=== PATIENT | male | born 1970 | race Caucasian/White ===

== ENCOUNTER 2016-09-17 16:05 | Inpatient (IN) | payer MEDICAID ==
[~2016-09-17] VITALS: Ht 175.3 cm; Wt 93.9 kg
--- NOTE | 2016-09-17 16:08 | NUR ---
PT BIB RA C/O MID STERNAL CHEST PAIN 03/03, RADIATING TO BACK, X 2 HRS ASSET ANALYST. PLACED PT ON MONITOR. VSS. AWAITNG MD ORDER
--- NOTE | 2016-09-17 16:08 | NUR ---
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 BLOOD COLLECTED SENT TO LAB.
[2016-09-17 16:23] LABS: BASOPHILS # (AUTO) 0.1 /CMM (0.0-0.2); BASOPHILS % (AUTO) 0.9 % (0.0-2.0); EOSINOPHILS # (AUTO) 0.2 /CMM (0.0-0.7); EOSINOPHILS % (AUTO) 2.2 % (0.0-6.0); HEMATOCRIT 48 % (39-51); HEMOGLOBIN 16.1 g/dL (13.5-17.5); LYMPHOCYTES # (AUTO) 3.2 /CMM (0.8-4.8); LYMPHOCYTES % (AUTO) 32.1 % (20.0-44.0); MEAN CORPUSCULAR HEMOGLOBIN 30 PG (26.0-33.0); MEAN CORPUSCULAR HGB CONC 33 g/dl (31.0-36.0); MEAN CORPUSCULAR VOLUME 90 fL (80-96); MONOCYTES # (AUTO) 0.7 /CMM (0.1-1.30); MONOCYTES % (AUTO) 6.8 % (2.0-12.0); NEUTROPHILS # (AUTO) 5.6 /CMM (1.8-8.9); PLATELET COUNT (AUTO) 285 /CMM (150-450); RDW COEFFICIENT OF VARIATION 12.2 (11.5-15.0); RED BLOOD CELL COUNT(AUTO) 5.38 MIL/uL (4.5-6.0); WHITE BLOOD COUNT (AUTO) 9.8 K/uL (4.3-11.0)
[2016-09-17] MEDS ORDERED: MORPHINE SULFATE INJ 4 MG/ML DISP.SYRIN ONE (16:24)
[2016-09-17] MEDS ORDERED: MORPHINE SULFATE INJ 2 MG/ML DISP.SYRIN IV ONE (16:30)
[2016-09-17] MEDS ORDERED: UNK CHOLESTEROL MED (16:36)
[2016-09-17] MEDS ORDERED: ASPI81TA2 PO (16:36)
[2016-09-17] MEDS ORDERED: METF500T4 PO (16:36)
[2016-09-17] MEDS ORDERED: UNK BP MED (16:36)
[2016-09-17 16:38] LABS: INR 1.02 (0.87-1.13); PROTHROMBIN TIME 10.6 SECS (9.5-12.7)
[2016-09-17 16:40] LABS: ALANINE AMINOTRANSFERASE 60 U/L (12-78); ALBUMIN 4.3 g/dL (3.4-5.0); ALKALINE PHOSPHATASE 116 U/L (46-116); ASPARTATE AMINOTRANSFERASE 39 U/L (15-37); BILIRUBIN,DIRECT 0.1 mg/dL (0.0-0.2); BILIRUBIN,TOTAL 0.5 mg/dL (0.2-1.0); TOTAL PROTEIN, SERUM 8.1 g/dL (6.4-8.2)
[2016-09-17 16:43] LABS: TROPONIN I < 0.017 ng/mL (0.00-0.056)
--- NOTE | 2016-09-17 17:42 | NUR ---
326 B 2
--- NOTE | 2016-09-17 17:42 | NUR ---
WAITING FOR CREATININE & BUN LABS BEFORE CT SCAN.
[2016-09-17 17:46] LABS: CALCIUM, SERUM 9.8 mg/dL (8.5-10.1); CREATININE 0.9 mg/dL (0.6-1.3); POTASSIUM 4.1 mmol/L (3.5-5.1)
--- NOTE | 2016-09-17 17:56 | NUR ---
GAVE REPORT TO LISSETH LOPEZ PT 326-2 TELEMETRY .
[2016-09-17] MEDS ORDERED: IOHEXOL-350 100 ML VIAL IV ONE (18:03)
[2016-09-17] MEDS ORDERED: IV NS 0.9% 250 ML IV ONE (18:03)
--- NOTE | 2016-09-17 18:08 | NUR ---
PT TAKEN TO CT VIA [facility]
--- NOTE | 2016-09-17 18:55 | NUR ---
PAGED STEM ROLLER PANEL
--- NOTE | 2016-09-17 19:08 | NUR ---
RECEIVED REPORT FROM TOBIAS EVERETT FOR BERE.
--- NOTE | 2016-09-17 19:08 | NUR ---
Note tea in EDM - 09/17/16 at 1910 by GAETANO RECEIVED REPORT FROM TOBIAS EVERETT FOR BERE. XRAY AT BEDSIDE. PT NOTED COMFORTABLE IN BED.
[2016-09-17] MEDS ORDERED: ONDANSETRON HCL/PF 4 MG/2 ML VIAL IVP PRN (19:30)
[2016-09-17] MEDS ORDERED: LORAZEPAM 1 MG TABLET PO PRN (19:30)
[2016-09-17] MEDS ORDERED: DOCUSATE SODIUM 100 MG CAPSULE PO PRN (19:30)
[2016-09-17] MEDS ORDERED: ZOLPIDEM TARTRATE 5 MG TABLET PO PRN (19:30)
--- NOTE | 2016-09-17 19:36 | NUR ---
PT TRANSFERED PER ACLS PROTOCOL.
--- NOTE | 2016-09-17 19:40 | NUR ---
TELE/RN NOTES RECEIVED PT. FROM ER VIA [facility]. PT. IS AWAKE, ALERT AND ORIENTED X3. BREATHING EVEN AND UNLABORED ON 2LPM O2 VIA NC. NO SOB, RESPIRATORY DISTRESS NOTED AT THIS TIME. NO COMPLAINTS OF CHEST PAIN AT THIS TIME. PT. COMPLAINING OF PAIN 2/10 IN HIS BACK, STATING ITS MUCH BETTER THAN BEFORE. ORIENTED PT. TO ROOM. PLACED EXTERNAL PLASTIC STRAIGHTENING ROLL OPERATOR ON PT. CURRENT RHYTHM = SINUS RHYTHM HR 90. PT. WITH LEFT FOREARM 18 GAUGE IV SALINE LOCK PRESENT, PATENT AND INTACT. PT. WITH FAMILY PRESENT AT BEDSIDE. BED IN LOWEST POSITION, CALL LIGHT WITHIN REACH, WILL CONTINUE TO MONITOR.
[2016-09-17 20:00] VITALS: BP 147/97
[2016-09-17] MEDS ORDERED: NITROGLYCERIN 30 GM TUBE TP PRN (20:00)
[2016-09-17] MEDS ORDERED: *INSULIN REGULAR(HUMULIN R)HUM 100 UNIT/ML VIAL SQ PRN (20:30)
[2016-09-17] MEDS ORDERED: DEXTROSE 50%-WATER 50 ML DISP.SYRIN IV PRN (20:30)
[2016-09-17] MEDS ORDERED: INSULIN REGULAR, HUMAN 100 UNIT/ML 3 ML VIAL SQ PRN (20:30)
[2016-09-17] MEDS: BLOOD SUGAR DIAGNOSTIC 1 EACH STRIP VI SCH (22:26)
[2016-09-18] VITALS: BP 134/74
[2016-09-18] MEDS: METOPROLOL TARTRATE 25 MG TABLET PO SCH ×3 (00:30→21:00)
[2016-09-18] MEDS ORDERED: ENOXAPARIN SODIUM 40 MG/0.4 ML DISP.SYRIN SQ SCH ×2 (00:30→21:00)
[2016-09-18] MEDS ORDERED: ATORVASTATIN 40 MG TABLET ONE (00:52)
[2016-09-18] MEDS ORDERED: ENOXAPARIN SODIUM 40 MG/0.4 ML DISP.SYRIN SQ ONE (00:52)
[2016-09-18] MEDS ORDERED: METOPROLOL TARTRATE 25 MG TABLET ONE (00:52)
[2016-09-18] MEDS: ATORVASTATIN 40 MG TABLET PO SCH ×2 (01:08→21:43)
[2016-09-18 04:00] VITALS: BP 104/63
[2016-09-18] MEDS: BLOOD SUGAR DIAGNOSTIC 1 EACH STRIP VI SCH ×4 (06:43→21:43)
--- NOTE | 2016-09-18 06:55 | NUR ---
TELE/RN NOTES PT. LYING IN BED RESTING. BREATHING EVEN AND UNLABORED ON 2LPM O2 VIA NC. NO SOB, RESPIRATORY DISTRESS NOTED AT THIS TIME. NO COMPLAINTS OF CHEST PAIN AT THIS TIME AND THROUGHOUT SHIFT. PT. WITH EXTERNAL MAINTENANCE DEPARTMENT MANAGER PRESENT AND INTACT, CURRENT RHYTHM = SINUS RHYTHM HR 82. NO S/S OF HYPO/HYPERGLYCEMIA NOTED THROUGHOUT SHIFT. PT. WITH LEFT FOREARM 18 GAUGE IV SALINE LOCK PRESENT, PATENT AND INTACT. ALL PT. NEEDS MET. BED IN LOWEST POSITION, CALL LIGHT WITHIN REACH, WILL ENDORSE TO DAYSHIFT NURSE FOR CONTINUITY OF CARE.
[2016-09-18 07:49] LABS: CHOLESTEROL 113 mg/dL (<200); HDL CHOLESTEROL 29 mg/dL (40-60); LDL 70 mg/dL (0-99); TRIGLYCERIDES 120 mg/dL (30-150)
[2016-09-18 08:00] VITALS: BP_SYST 107; BP_SYST 114; BP_DIAS 55; BP_DIAS 61
--- NOTE | 2016-09-18 08:05 | NUR ---
BAKERY MANAGER OPENING NOTES RECIEVED PT IN STABLE CONDITION FROM VICE PRESIDENT INDUSTRIAL RELATIONS NURSE. NO SOB OR PAIN EXPRESSED AT THIS TIME. PT ON TELE MONITOR READING SINUS RHYTHM, HR 60. IV ON LEFT FOREARM 18 G INTACT AND PATENT. BED IN LOW LOCKED POSITION, SIDE RAILS UP X2, CALL LIGHT WITHIN REACH. WILL CONTINUE TO MONITOR.
[2016-09-18] MEDS: ASPIRIN 81 MG TAB.CHEW PO SCH (09:14)
[2016-09-18] MEDS: FAMOTIDINE (20 MG) 20 MG TABLET PO SCH (09:14)
[2016-09-18 12:00] VITALS: BP 125/86
[2016-09-18 13:23] LABS: ALBUMIN 4.1 g/dL (3.4-5.0); BILIRUBIN,TOTAL 0.9 mg/dL (0.2-1.0); CALCIUM, SERUM 9.4 mg/dL (8.5-10.1); PHOSPHORUS 4.7 mg/dL (2.5-4.9); POTASSIUM 4.2 mmol/L (3.5-5.1); TOTAL PROTEIN, SERUM 7.7 g/dL (6.4-8.2)
[2016-09-18 13:25] LABS: THYROID STIMULATING HORMONE 1.63 uIU/mL (0.358-3.74)
[2016-09-18 16:00] VITALS: BP 112/73
--- NOTE | 2016-09-18 19:30 | NUR ---
PLATE WORKER INITIAL NOTE RECEIVED PT AWAKE AND ALERT, ORIENTED X4, NO COMPLAINT OF PAIN OR RESPIRATORY DISTRESS NOTED DURING PHYSICAL ASSESSMENT, PT IS CLEAN/DRY AND COMFORTABLE, PT WILL BE GOING FOR A LEXISCAN STRESS TEST TOMORROW IN AM, WILL BE KEPT NPO AFTER MIDNIGHT, CONSENT HAVE BEEN SIGNED AND PLACED IN CHART, SAFETY MEASURES WILL BE MAINTAINED, NEEDS WILL BE ANTICIPATED AND ATTENDED TO DURING HOURLY ROUNDS AND NEEDED.
--- NOTE | 2016-09-18 19:46 | NUR ---
CREAM TESTER CLOSING NOTES ENDORSED PT IN STABLE CONDITION TO SUPPLY CHAIN ASSISTANT NURSE. NO SOB OR PAIN EXPRESSED AT THIS TIME. PT ON TELE MONITOR READING SINUS RHYTHM, HR 60. IV ON LEFT FOREARM 18 G INTACT AND PATENT. NO REDNESS OR INFILTRATION NOTED. BED IN LOW LOCKED POSITION, SIDE RAILS UP X2, CALL LIGHT WITHIN REACH.
[2016-09-18 20:00] VITALS: BP 117/70
[2016-09-19] VITALS: BP 111/67
[2016-09-19 04:00] VITALS: BP 114/62
--- NOTE | 2016-09-19 06:40 | NUR ---
B2B APPOINTMENT SETTER CLOSING NOTE PT REMAINED STABLE DURING HEDGE FUND MANAGER, HE IS SCHEDULE TO HAVE LEXISCAN STRESS TEST THIS MORNING, HE WAS NPO AFTER MIDNIGHT, NO SIGNIFICANT CHANGES IN CONDITION NOTED DURING NIGHT, PT SLEPT INTERMITTENTLY, WITH NO COMPLAINT OF PAIN OR RESPIRATORY, PT CLEAN/DRY AND COMFORTABLE, SAFETY MEASURES MAINTAINED AT ALL TIMES, WILL ENDORSE TO INCOMING NURSE FOR BERE.
[2016-09-19] MEDS: BLOOD SUGAR DIAGNOSTIC 1 EACH STRIP VI SCH ×3 (06:57→17:50)
[2016-09-19 07:02] VITALS: BP 110/66
[2016-09-19 07:15] LABS: BASOPHILS # (AUTO) 0.1 /CMM (0.0-0.2); BASOPHILS % (AUTO) 0.8 % (0.0-2.0); EOSINOPHILS # (AUTO) 0.2 /CMM (0.0-0.7); EOSINOPHILS % (AUTO) 2.1 % (0.0-6.0); HEMATOCRIT 52 % (39-51); HEMOGLOBIN 17.2 g/dL (13.5-17.5); LYMPHOCYTES # (AUTO) 3.1 /CMM (0.8-4.8); LYMPHOCYTES % (AUTO) 32.7 % (20.0-44.0); MEAN CORPUSCULAR HEMOGLOBIN 30 PG (26.0-33.0); MEAN CORPUSCULAR HGB CONC 33 g/dl (31.0-36.0); MEAN CORPUSCULAR VOLUME 91 fL (80-96); MONOCYTES # (AUTO) 0.8 /CMM (0.1-1.30); MONOCYTES % (AUTO) 8.2 % (2.0-12.0); NEUTROPHILS # (AUTO) 5.3 /CMM (1.8-8.9); NEUTROPHILS % (AUTO) 56.2 % (43.0-81.0); PLATELET COUNT (AUTO) 288 /CMM (150-450); RDW COEFFICIENT OF VARIATION 13.3 (11.5-15.0); RED BLOOD CELL COUNT(AUTO) 5.69 MIL/uL (4.5-6.0); WHITE BLOOD COUNT (AUTO) 9.4 K/uL (4.3-11.0)
--- NOTE | 2016-09-19 07:18 | NUR ---
TELE/RN AM NOTES RECEIVED PATIENT IN BED, AWAKE, ALERT, EQUATORIAL GUINEAN SPEAKING, DENIES CHEST PAIN, NO SOB, COMFORTABLE IN BED, NO DISCOMFORT NOTED, REMAINS NPO FOR CARDIAC STRESS TEST. NEEDS MET, WITH CALL LIGHT WITHIN EASY REACH. WILL CONTINUE TO MONITOR ACCORDINGLY.
[2016-09-19 07:57] LABS: CALCIUM, SERUM 9.4 mg/dL (8.5-10.1); CREATININE 0.9 mg/dL (0.6-1.3); POTASSIUM 4.2 mmol/L (3.5-5.1)
[2016-09-19 08:00] VITALS: BP 110/66
[2016-09-19] MEDS ORDERED: REGADENOSON 0.4 MG/5 ML DISP.SYRIN IVP ONE (08:00)
[2016-09-19] MEDS: METOPROLOL TARTRATE 25 MG TABLET PO SCH (09:00)
[2016-09-19] MEDS: FAMOTIDINE (20 MG) 20 MG TABLET PO SCH (09:34)
[2016-09-19] MEDS: ASPIRIN 81 MG TAB.CHEW PO SCH (09:34)
--- NOTE | 2016-09-19 10:00 | NUR ---
TELE/RN NOTES PATIENT IS BACK FROM CARDIAC TEST, IN STABLE CONDITION, NO CHEST PAIN, NO SOB, LATE BREAKFAST PROVIDED, TOLERATED WELL
[2016-09-19] MEDS ORDERED: IBUP-1955 PO (14:48)
[2016-09-19 16:00] VITALS: BP 115/73
--- NOTE | 2016-09-19 18:05 | NUR ---
DISCHARGED PATIENT HOME, IN STABLE CONDITION, ON W/C, WITH DIRECTOR OF LOSS PREVENTION ASSISTANCE, FAMILY AWAITING IN THE LOBBY. AWAKE, ALERT, WITH NO SOB, BLOOD GLUCOSE 122 , NO COVERAGE GIVEN. DINNER TOLERATED WELL. LEFT WITH ALL HIS BELONGINGS, D/C PAPERS, ENCOURAGED TO F/U WITH PRIMARY PHYSICIAN WITHIN A WEEK.
== END 2016-09-19 18:00 | disposition home or self-care (01) | DRG 203 ==
LOC: ER 16:06 → TELE 18:42 → MED 09-19 11:21
PROVIDERS: ADMIT Internal Medicine; ATTEND Internal Medicine
DX: M94.0 Chondrocostal junction syndrome [Tietze] (principal); K76.0 Fatty (change of) liver, not elsewhere classified; I11.9 Hypertensive heart disease without heart failure; R07.9 Chest pain, unspecified; E11.9 Type 2 diabetes mellitus without complications; E78.5 Hyperlipidemia, unspecified; J98.11 Atelectasis
CPT/HCPCS: 36415; 71010-TC; 76700-TC; 80048-TC; 80053-TC; 80061-TC; 80076-TC; 82962-TC; 83690-TC; 83735-TC; 84100-TC; 84439-TC; 84443-TC; 84484-TC; 85025-TC; 85730-TC; 87081-TC; 93307-TC; A4606; A9502; J1650; J1815; J2270; J2785; J7050; Q9967; Z7610

== ENCOUNTER 2019-01-14 08:01 | Emergency (ER) | payer MEDICAID ==
[~2019-01-14] VITALS: Ht 172.7 cm; Wt 93.0 kg
[~2019-01-14 08:01] MED LIST: ASPI-1169 PO; IBUP-1955 PO; METF-440 PO; UNK BP MED; UNK CHOLESTEROL MED
--- NOTE | 2019-01-14 08:21 | NUR ---
patient c/o left shoulder pain x 2 days, -trauma, denies injury. on room air, breathing evenly and unlabored. kept comfortable, will continue to monitor accordingly. Dr. cervantes at bedside for eval.
[2019-01-14] MEDS ORDERED: KETOROLAC TROMETHAMINE INJ 30 MG/ML VIAL ONE (08:26)
[2019-01-14] MEDS ORDERED: KETOROLAC TROMETHAMINE INJ 60 MG/2 ML VIAL IM ONE (08:30)
--- NOTE | 2019-01-14 08:54 | NUR ---
Patient discharged to home in stable condition. Written and verbal after care instructions given. Patient verbalizes understanding of instruction.
[2019-01-14 08:55] VITALS: BP 148/95
== END 2019-01-14 08:55 | disposition home or self-care (01) ==
LOC: ER 08:01
DX: M54.12 Radiculopathy, cervical region (principal); I10 Essential (primary) hypertension; E11.9 Type 2 diabetes mellitus without complications; Z79.84 Long term (current) use of oral hypoglycemic drugs; Z79.82 Long term (current) use of aspirin
CPT/HCPCS: 93005; 96372; 99283; J1885

== ENCOUNTER 2019-06-29 11:09 | Emergency (ER) | payer MEDICAID ==
[~2019-06-29] VITALS: Ht 175.3 cm; Wt 95.3 kg
--- NOTE | 2019-06-29 11:15 | NUR ---
c/o r knee pain 03/03 ps x 2 weeks, denies injury. Patient a/ox4, breathing even and unlabored, no sob noted, needs attended.
--- NOTE | 2019-06-29 11:18 | NUR ---
SEEN BY AISHWARYA CHOI NP.
[2019-06-29] MEDS ORDERED: IBUPROFEN 400 MG TABLET ONE (11:20)
[2019-06-29] MEDS: IBUPROFEN 400 MG TABLET PO ONE (11:22)
--- NOTE | 2019-06-29 12:32 | NUR ---
Patient discharged to home in stable condition. Written and verbal after care instructions given. Patient verbalizes understanding of instruction.
--- NOTE | 2019-06-29 12:44 | NUR ---
RIGHT KNEE IMMOBILIZER APPLIED.
[2019-06-29 12:45] VITALS: BP 135/18
== END 2019-06-29 12:45 | disposition home or self-care (01) ==
LOC: ER 11:11
DX: M25.561 Pain in right knee (principal); E11.9 Type 2 diabetes mellitus without complications; I11.9 Hypertensive heart disease without heart failure; Z79.82 Long term (current) use of aspirin; Z79.899 Other long term (current) drug therapy
CPT/HCPCS: 73564-TC

== ENCOUNTER 2019-12-15 10:26 | Emergency (ER) | payer MEDICAID ==
[~2019-12-15] VITALS: Ht 177.8 cm; Wt 74.8 kg
[2019-12-15 10:59] VITALS: BP 131/78
--- NOTE | 2019-12-15 12:19 | NUR ---
SEEN AND EXMAINED BY .
--- NOTE | 2019-12-15 12:25 | NUR ---
ANIMAL CONTROL OFFICER AT BEDSIDE FOR XRAY.
[2019-12-15] MEDS ORDERED: KETOROLAC TROMETHAMINE INJ 30 MG/ML VIAL IM ONE (12:30)
[2019-12-15] MEDS ORDERED: KETOROLAC TROMETHAMINE 15 MG/ML VIAL ONE (12:51)
--- NOTE | 2019-12-15 13:41 | NUR ---
Patient discharged to home in stable condition. Written and verbal after care instructions given. Patient verbalizes understanding of instruction.
== END 2019-12-15 13:42 | disposition home or self-care (01) ==
LOC: ER 10:26
DX: R07.81 Pleurodynia (principal); G89.29 Other chronic pain; M54.9 Dorsalgia, unspecified; I10 Essential (primary) hypertension; E11.9 Type 2 diabetes mellitus without complications; Z79.82 Long term (current) use of aspirin; Z79.84 Long term (current) use of oral hypoglycemic drugs
CPT/HCPCS: 71045; 96372; 99283; J1885

== ENCOUNTER 2021-02-01 15:42 | Emergency (ER) | payer MEDICAID ==
[~2021-02-01] VITALS: Ht 170.2 cm; Wt 79.4 kg
--- NOTE | 2021-02-01 16:15 | NUR ---
BIBS BILAT EAR PAIN WHICH MAKES HIM DIZZY X 1 MONTH. RATES PAIN 6/10. DENIES CHANGE INNVISION. WILL CONTINUE TO MONITOR THE PATIENT.
[2021-02-01] MEDS ORDERED: NEOM10DR11 OT (16:19)
[2021-02-01] MEDS ORDERED: IBUP-1955 PO (16:19)
[2021-02-01 16:39] VITALS: BP 149/92
--- NOTE | 2021-02-01 16:39 | NUR ---
Patient discharged to home in stable condition. Written and verbal after care instructions given. Patient verbalizes understanding of instruction.
== END 2021-02-01 16:39 | disposition home or self-care (01) ==
LOC: ER 15:55
DX: H60.93 Unspecified otitis externa, bilateral (principal); I10 Essential (primary) hypertension; E11.9 Type 2 diabetes mellitus without complications; Z79.899 Other long term (current) drug therapy; Z79.84 Long term (current) use of oral hypoglycemic drugs; Z79.82 Long term (current) use of aspirin

== ENCOUNTER 2021-08-21 06:58 | Inpatient (IN) | payer MEDICAID ==
[2021-08-20 20:00] VITALS: BP 130/76
[~2021-08-21] VITALS: Ht 170.2 cm; Wt 84.4 kg
[~2021-08-21 06:58] MED LIST changes: +NEOM10DR11 OT
--- NOTE | 2021-08-21 07:13 | NUR ---
PATIENT BIBSELF C/O CP STARTED 5AM RAD TO LEFT ARM AND LEG FEELING PARESTHESIA. PATIENT IS A/O X 4 RR EVEN AND UNLABORED, NO SOB NOTED. PATIENT CONNECTED TO CARDIAC AND POX MONITORS.
--- NOTE | 2021-08-21 07:14 | NUR ---
BLOOD COLLECTED SENT TO LAB
--- NOTE | 2021-08-21 07:20 | NUR ---
Gracie metcalf in [facility] - 08/21/21 at 0720 by ALVARO 20G IV LINE ESTABLISHED AT [facility]. PATENT AND INTACT. BLOOD DRAWN AND SENT TO LAB.
--- NOTE | 2021-08-21 07:35 | NUR ---
CLINICAL RESEARCH MANAGEMENT ASSOCIATE AT BEDSIDE
[2021-08-21 07:43] LABS: BASOPHILS # (AUTO) 0.1 K/uL (0.0-0.2); BASOPHILS % (AUTO) 0.9 % (0.0-2.0); EOSINOPHILS % (AUTO) 1.6 % (0.0-6.0); HEMATOCRIT 47 % (39-51); HEMOGLOBIN 15.6 g/dL (13.5-17.5); LYMPHOCYTES # (AUTO) 1.9 K/uL (0.8-4.8); LYMPHOCYTES % (AUTO) 31.3 % (20.0-44.0); MEAN CORPUSCULAR HGB CONC 33 g/dl (31.0-36.0); MEAN CORPUSCULAR VOLUME 91 fL (80-96); MONOCYTES # (AUTO) 0.6 K/uL (0.1-1.30); MONOCYTES % (AUTO) 10.2 % (2.0-12.0); NEUTROPHILS # (AUTO) 3.4 K/uL (1.8-8.9); PLATELET COUNT (AUTO) 249 K/uL (150-450); RED BLOOD CELL COUNT(AUTO) 5.12 MIL/uL (4.5-6.0); WHITE BLOOD COUNT (AUTO) 6.1 K/uL (4.3-11.0)
[2021-08-21 07:53] LABS: CALCIUM, SERUM 8.7 mg/dL (8.5-10.1); CARBON DIOXIDE 30 mmol/L (21-32); CHLORIDE 100 mmol/L (98-107); CREATININE 0.7 mg/dL (0.6-1.3); GLUCOSE 137 mg/dL (74-106); POTASSIUM 3.4 mmol/L (3.5-5.1); SODIUM SERUM 136 mmol/L (136-145); UREA NITROGEN, BLOOD 12 mg/dL (7-18)
[2021-08-21] MEDS ORDERED: METF-441 PO (08:13)
[2021-08-21] MEDS ORDERED: ATOR10TA PO (08:13)
[2021-08-21] MEDS ORDERED: LISI2.5T2 PO (08:13)
--- NOTE | 2021-08-21 08:23 | NUR ---
panel clinical education assistant paged
--- NOTE | 2021-08-21 09:06 | NUR ---
COVID SWAB DONE AND SENT TO LAB
--- NOTE | 2021-08-21 16:40 | NUR ---
SPOKE TO PATIENT DAUGHTER ROSI [phone]
[2021-08-21] MEDS ORDERED: Z GUARD REMEDY 4 OZ OINT TP PRN (17:00)
[2021-08-21] MEDS ORDERED: INSULIN REGULAR, HUMAN 100 UNIT/ML 3 ML VIAL SQ PRN (17:00)
[2021-08-21] MEDS ORDERED: ACETAMINOPHEN 325 MG TABLET PO PRN (17:00)
[2021-08-21] MEDS ORDERED: ENOXAPARIN SODIUM 40 MG/0.4 ML DISP.SYRIN SQ SCH (17:00)
[2021-08-21] MEDS ORDERED: ONDANSETRON HCL/PF 4 MG/2 ML VIAL IVP PRN (17:00)
[2021-08-21] MEDS ORDERED: DEXTROSE 50%-WATER 50 ML DISP.SYRIN IV PRN (17:00)
[2021-08-21] MEDS ORDERED: POTASSIUM CHLORIDE 20 MEQ TAB.PRT.SR PO ONE ×2 (17:00→17:17)
[2021-08-21] MEDS ORDERED: ENOXAPARIN SODIUM 40 MG/0.4 ML DISP.SYRIN SQ ONE (17:15)
[2021-08-21] MEDS ORDERED: ACETAMINOPHEN 325 MG TABLET ONE (17:15)
[2021-08-21] MEDS ORDERED: METFORMIN 850 MG TABLET ONE (17:16)
[2021-08-21] MEDS: BLOOD SUGAR DIAGNOSTIC 1 EACH STRIP IN SCH ×2 (17:23→21:35)
[2021-08-21] MEDS: METFORMIN 850 MG TABLET PO SCH (17:23)
--- NOTE | 2021-08-21 18:48 | NUR ---
BED 326-1.
--- NOTE | 2021-08-21 19:23 | NUR ---
REPORT GIVEN TO TREMAINE FOR BERE
--- NOTE | 2021-08-21 19:52 | NUR ---
PATIENT TRANSPORTED TO ROOM 326 ON SUPERVISOR PIG MACHINE PER ACLS PROTOCOL. V/S STABLE AT TIME OF TRANSFER.
--- NOTE | 2021-08-21 19:53 | NUR ---
PHYSICAL CHEMISTRY TEACHEROAK TANNER NOTE PT TRANSPORTED [facility] TO UNIT AT THIS TIME. PT FROM HOME ADMITTED TO TELE FROM ER FOR ADMITTING DX OF CHEST PAIN. PT ABLE TO OPEN EYES, RESPONSIVE TO LIGHT STIMULUS. NO SOB NOTED. BREATHING EVEN AND UNLABORED. PT IS ON EXTERNAL EYEGLASS FITTER READING SR @ 68 BPM. NO COMPLAINTS OF PAIN OR DISCOMFORT AT THIS TIME. SKIN IS INTACT. IV ACCESS RAC 20 GAUGE, INTACT AND PATENT. ORIENTED PT TO STAFF, UNIT, AND ROOM. ALL PT BELONGINGS ACCOUNTED FOR AND SIGNED PT BELONGINGS LIST. SAFETY PRECAUTIONS IN PLACE. BED IN LOWEST LOCKED POSITION, HOB ELEVATED, SIDE RAILS UP X2, AND CALL LIGHT AND TABLE WITHIN REACH. WILL CONTINUE WITH PLAN OF CARE.
[2021-08-21] MEDS ORDERED: ATORVASTATIN 40 MG TABLET PO SCH (22:00)
--- NOTE | 2021-08-21 23:38 | NUR ---
RN BERE NOTE PATIENT RECEIVED FROM TOBIAS PENALOZA. TELE MONITOR READS SB 54 BPM. PATIENT SLEEPING. STABLE AT THIS TIME. WILL MONITOR PATIENT CLOSELY.
[2021-08-22] VITALS: BP 102/67
[2021-08-22 04:00] VITALS: BP 137/90
[2021-08-22] MEDS: BLOOD SUGAR DIAGNOSTIC 1 EACH STRIP IN SCH ×2 (06:39→12:06)
[2021-08-22 06:43] LABS: BASOPHILS % (AUTO) 0.7 % (0.0-2.0); EOSINOPHILS % (AUTO) 2.6 % (0.0-6.0); HEMATOCRIT 45 % (39-51); HEMOGLOBIN 15.1 g/dL (13.5-17.5); LYMPHOCYTES # (AUTO) 1.9 K/uL (0.8-4.8); LYMPHOCYTES % (AUTO) 33.5 % (20.0-44.0); MEAN CORPUSCULAR HGB CONC 34 g/dl (31.0-36.0); MEAN CORPUSCULAR VOLUME 91 fL (80-96); MONOCYTES # (AUTO) 0.6 K/uL (0.1-1.30); NEUTROPHILS % (AUTO) 53.2 % (43.0-81.0); PLATELET COUNT (AUTO) 246 K/uL (150-450); RED BLOOD CELL COUNT(AUTO) 4.96 MIL/uL (4.5-6.0); WHITE BLOOD COUNT (AUTO) 5.7 K/uL (4.3-11.0)
--- NOTE | 2021-08-22 06:49 | NUR ---
RN CLOSING NOTE PATIENT IN BED, EYES CLOSED. EASILY AWAKENED. PATIENT DOES NOT COMPLAIN OF ANY DYSPNEA OR CHEST PAIN AT THIS TIME. TELE MONITOR READS NSR HR ON HIGH 55 AND 60S. PATIENT HAS A RAC 20 G SALINE LOCKED AT THIS TIME. BS 127 MG/DL NO COVERAGE GIVEN. SAFETY MEASURES IMPLEMENTED. CALL LIGHT WITHIN REACH. ALL NEEDS MET AND ATTENDED. ALL ORDERS CARRIED OUT. WILL ENDORSE TO DAY SHIFT NURSE FOR BERE.
[2021-08-22 07:21] LABS: ALBUMIN 3.6 g/dL (3.4-5.0); BILIRUBIN,TOTAL 0.9 mg/dL (0.2-1.0); CREATININE 0.7 mg/dL (0.6-1.3); PHOSPHORUS 3.9 mg/dL (2.5-4.9); POTASSIUM 4.3 mmol/L (3.5-5.1); TOTAL PROTEIN, SERUM 7.1 g/dL (6.4-8.2)
--- NOTE | 2021-08-22 07:49 | NUR ---
RN OPENING NOTES PATIENT AWAKE IN BED RESTING, A/O X4. NO S/S OF PAIN NOTED AT THIS TIME. PATIENT ON ROOM AIR, NO DISTRESS OR SHORTNESS OF BREATH. IV ACCESS RAC #20G INTACT, PATENT AND FLUSHING WELL. PATIENT HAS AN EXTERNAL GREEN PROMOTIONS SPECIALIST CURRENT READING OF S.B AND HR OF 60. FALL AND SAFETY MEASURES IN PLACE, BED ALARM ON, BED IN LOW AND LOCK POSITION, CALL LIGHT AND TABLE WITHIN EASY REACH, SIDE RAILS UP X2. WILL CONTINUE TO MONITOR.
[2021-08-22 08:41] VITALS: BP 122/73
[2021-08-22] MEDS: METFORMIN 850 MG TABLET PO SCH (08:50)
[2021-08-22] MEDS ORDERED: ASPIRIN 81 MG TAB.CHEW PO SCH (09:00)
--- NOTE | 2021-08-22 09:52 | NUR ---
RN NOTE PATIENT IS NOT IN ROOM AT THE MOMENT, PATIENT WAS TAKEN TO GET DONE A CT ANGIO HEART WITH 3D IMAGING.
[2021-08-22] MEDS ORDERED: IOHEXOL-350 100 ML VIAL IV ONE (10:12)
[2021-08-22] MEDS ORDERED: IV NS 0.9% 250 ML IV ONE (10:12)
[2021-08-22] MEDS ORDERED: NITROGLYCERIN 0.4 MG/TAB BOTTLE ONE (10:12)
[2021-08-22] MEDS ORDERED: CT SWABBABLE VALVE TRANS SET 1 EA INFUS.SET MC ONE (10:12)
[2021-08-22] MEDS ORDERED: METOPROLOL TARTRATE INJ 5 MG/5 ML AMPUL ONE (10:12)
--- NOTE | 2021-08-22 11:07 | NUR ---
Received the patient in the CT Room at 1025 hrs. Explained procedure to patient and answered all questions. Procedure started at 1032 hrs. Tolerated well. Procedure completed at 1044 hrs with stable vitals signs. NO signs of untoward reactions noted. See CTA intervention.
--- NOTE | 2021-08-22 11:30 | NUR ---
RN NOTE PATIENT IS BACK IN ROOM IN STABLE MEDICAL CONDITION, PATIENT HAD A CT ANGIO HEART WITH 3D IMAGING DONE.
[2021-08-22 12:44] LABS: THYROID STIMULATING HORMONE 1.1 uIU/mL (0.358-3.74)
[2021-08-22 12:53] VITALS: BP 108/68
[2021-08-22 16:14] VITALS: BP 115/71
--- NOTE | 2021-08-22 17:15 | NUR ---
AUDIOVISUAL LIBRARIAN NOTE PATIENT DISCHARGED IN MEDICAL STABLE CONDITION. A/O X 4. V/S TAKEN, STABLE AND RECORDED. NO IV ACCESS. SKIN ASSESSMENT DONE, SKIN INTACT. NAME ARM BAND REMOVED. ALL BELONGINGS CHECKED AND SIGNED. HEALTH TEACHING AND DISCHARGE INSTRUCTIONS GIVEN TO PATIENT AND VERBALIZED UNDERSTANDING. PATIENT LEFT UNIT AMBULATING WITH NO SIGNS OF DISTRESS, ACCOMPANIED BY LEAD ELECTRICIAN TO THE LOBBY. CHARGE NURSE AWARE OF DISCHARGE.
[2021-08-25] MEDS ORDERED: METFORMIN 850 MG TABLET PO SCH (09:00)
== END 2021-08-22 17:15 | disposition home or self-care (01) | DRG 203 ==
LOC: ER 07:00 → TRANSITION 08:22 → TELE 18:54
PROVIDERS: ADMIT Nurse Practitioner Acute Care; ATTEND Student in an Organized Health Care Education/Training Program
DX: M94.0 Chondrocostal junction syndrome [Tietze] (principal); E11.65 Type 2 diabetes mellitus with hyperglycemia; E78.5 Hyperlipidemia, unspecified; I10 Essential (primary) hypertension; E87.6 Hypokalemia; Z20.822 Contact with and (suspected) exposure to COVID-19; Z82.49 Family history of ischemic heart disease and other diseases of the circulatory system; Z79.84 Long term (current) use of oral hypoglycemic drugs; Z79.82 Long term (current) use of aspirin; Z79.899 Other long term (current) drug therapy; R74.01 Elevation of levels of liver transaminase levels
CPT/HCPCS: 36415; 71045-TC; 75574; 80048-TC; 80053-TC; 80061-TC; 83540-TC; 83735-TC; 84100-TC; 84443-TC; 84484-TC; 85025-TC; 87081-TC; 93307-TC; G0378; J1650; J1815; J3490; J7050; Q9967

== ENCOUNTER 2023-06-04 12:00 | Emergency (ER) | payer BC, MEDICAID ==
[~2023-06-04] VITALS: Ht 170.2 cm; Wt 98.0 kg
[~2023-06-04 12:00] MED LIST changes: +ATOR10TA PO; -IBUP-1955 PO; -METF-440 PO; +METF-441 PO; -NEOM10DR11 OT; -UNK BP MED; -UNK CHOLESTEROL MED
[2023-06-04] MEDS: VANCOMYCIN 1 GM in IV D5W 250 ML IV ONE (13:00)
[2023-06-04] MEDS: PIPERACILLIN /TAZOBACTAM 3.375 G in IV D5W 50 ML IV ONE (13:00)
[2023-06-04 13:18] LABS: BASOPHILS # (AUTO) 0.1 K/uL (0.0-0.2); BASOPHILS % (AUTO) 0.5 % (0.0-2.0); EOSINOPHILS % (AUTO) 0.4 % (0.0-6.0); HEMATOCRIT 50 % (39-51); HEMOGLOBIN 16.1 g/dL (13.5-17.5); LYMPHOCYTES # (AUTO) 1.1 K/uL (0.8-4.8); LYMPHOCYTES % (AUTO) 9.3 % (20.0-44.0); MEAN CORPUSCULAR HEMOGLOBIN 30 PG (26.0-33.0); MEAN CORPUSCULAR HGB CONC 33 g/dl (31.0-36.0); MEAN CORPUSCULAR VOLUME 91 fL (80-96); MONOCYTES # (AUTO) 1.2 K/uL (0.1-1.30); MONOCYTES % (AUTO) 9.9 % (2.0-12.0); NEUTROPHILS # (AUTO) 9.8 K/uL (1.8-8.9); NEUTROPHILS % (AUTO) 79.9 % (43.0-81.0); PLATELET COUNT (AUTO) 202 K/uL (150-450); RED BLOOD CELL COUNT(AUTO) 5.47 MIL/uL (4.5-6.0); RED CELL DISTRIBUTION WIDTH 14.3 % (11.5-15.0); WHITE BLOOD COUNT (AUTO) 12.3 K/uL (4.3-11.0)
[2023-06-04] MEDS: IV NS 0.9% 1,000 ML BAG IV ONE (13:37)
[2023-06-04 13:39] VITALS: BP 131/54; TEMP 103.2; O2SAT 96
[2023-06-04 13:43] LABS: ALANINE AMINOTRANSFERASE 49 U/L (12-78); ALBUMIN 4.1 g/dL (3.4-5.0); ALKALINE PHOSPHATASE 125 U/L (46-116); ASPARTATE AMINOTRANSFERASE 26 U/L (15-37); BILIRUBIN,DIRECT 0.2 mg/dL (0.0-0.2); CALCIUM, SERUM 9.3 mg/dL (8.5-10.1); CARBON DIOXIDE 26 mmol/L (21-32); CHLORIDE 99 mmol/L (98-107); GLUCOSE 139 mg/dL (74-106); POTASSIUM 3.6 mmol/L (3.5-5.1); SODIUM SERUM 136 mmol/L (136-145); TOTAL PROTEIN, SERUM 8.6 g/dL (6.4-8.2); UREA NITROGEN, BLOOD 11 mg/dL (7-18)
[2023-06-04 13:48] LABS: LACTIC ACID 2.9 mmol/L (0.4-2.0)
[2023-06-04 14:08] LABS: PARTIAL THROMBOPLASTIN TIME 27.4 SEC (24.3-34.3); PROTHROMBIN TIME 10.6 SECS (9.2-11.1)
[2023-06-04] MEDS ORDERED: ACETAMINOPHEN 325 MG TABLET ONE (14:17)
[2023-06-04] MEDS: ACETAMINOPHEN 325 MG TABLET PO ONE (14:18)
[2023-06-04] MEDS ORDERED: LOPE2CAP40 PO (14:27)
[2023-06-04] MEDS ORDERED: ACET-868 PO (14:27)
[2023-06-04] MEDS ORDERED: LISI2.5T2 PO (14:37)
[2023-06-04 15:47] LABS: APPEARANCE,URINE CLEAR (CLEAR); BILIRUBIN,URINE NEGATIVE (NEGATIVE); BLOOD, URINE NEGATIVE Ery/uL (NEGATIVE); COLOR,URINE YELLOW (YELLOW); KETONES,URINE NEGATIVE (NEGATIVE); LEUKOCYTE ESTERASE ,URINE NEGATIVE (NEGATIVE); NITRITE, URINE NEGATIVE (NEGATIVE); PH,URINE 5.5 (5.0-8.0); PROTEIN,URINE TRACE mg/dl (NEGATIVE); UGLUCOSE NEGATIVE (NEGATIVE); UROBILINOGEN,URINE 0.2 EU/dL (0.2)
[2023-06-04 16:43] LABS: ADD URINE CULTURE NO; BACTERIA,URINE None seen /HPF (None Seen); RBC,URINE NONE SEEN /HPF (0-2); SQUAMOUS EPITHELIAL CELL,UR None Seen /HPF (None Seen); WBC,URINE NONE SEEN /HPF (0-3)
[2023-06-04 16:44] LABS: MUCUS,URINE Few /LPF (None Seen)
== END 2023-06-04 19:35 | disposition short-term general hospital (02) ==
LOC: ER 12:06
DX: A41.9 Sepsis, unspecified organism (principal); R65.20 Severe sepsis without septic shock; K52.9 Noninfective gastroenteritis and colitis, unspecified; R11.2 Nausea with vomiting, unspecified; R10.9 Unspecified abdominal pain; R50.9 Fever, unspecified; R00.0 Tachycardia, unspecified; D72.829 Elevated white blood cell count, unspecified; E87.20 Acidosis, unspecified; I10 Essential (primary) hypertension; I25.2 Old myocardial infarction; E11.9 Type 2 diabetes mellitus without complications; Z79.84 Long term (current) use of oral hypoglycemic drugs; Z79.899 Other long term (current) drug therapy; Z20.822 Contact with and (suspected) exposure to COVID-19
CPT/HCPCS: 99291; 74176; 96365; 71045; 96366; 87426; 96368; 93005; 87804 ×2; 84145; 85025; 80048; 87040 ×2; 87086; 83605 ×2; 80076; 81001; 36415; 84484; 85730; J3370; J2543; J7060; J7030; C9803; A4223